=== PATIENT | male | born 1990 | race African-American/Black ===

== ENCOUNTER 2022-05-30 23:56 | Emergency (ER) | payer SELFPAY ==
[2022-05-31] MEDS ORDERED: ONDANSETRON 4 MG/2 ML VIAL ONE (00:41)
[2022-05-31] MEDS ORDERED: MORPHINE 4 MG/ML SYR ONE (00:41)
[2022-05-31] MEDS ORDERED: NA CHLORIDE 0.9% 2,000 ML ONE (00:41)
[2022-05-31] MEDS ORDERED: ACETAMINOPHEN 500 MG TAB ONE (00:41)
[2022-05-31 01:06] LABS: Absolute Lymphocytes (CBC) 0.3 K/uL (0.7-4.9); Lymphocytes % 4.7 % (15.3-44.8); MCV 84.9 fL (80-100); RBC Red Blood Cell Count 4.47 M/uL (4.33-5.43)
[2022-05-31 01:25] LABS: Albumin 4.4 g/dL (3.4-5.0); Bilirubin Total 0.3 mg/dL (0.2-1.0); Potassium 3.6 mmol/L (3.5-5.1); Protein, Total 7.6 g/dL (6.4-8.2)
[2022-05-31 03:01] LABS: Urine Blood Trace-intact (Negative); Urine Glucose Negative (Negative); Urine Protein Negative (Negative); Urine Specific Gravity 1.015 (1.005-1.030)
[2022-05-31 03:38] LABS: Urine Bacteria <20 /HPF (NONE SEEN); Urine Mucus 2+ /HPF (NONE SEEN); Urine RBC <5 /HPF (NONE SEEN)
--- NOTE | 2022-05-31 04:01 | ER ---
Nurse's Notes [facility] Name: Frederick Ghosh Age: 32 yrs Sex: Male : 1990 Arrival Date: 05/30/2022 Time: 23:59 Bed 3 Private MD: Diagnosis: Low back pain;Fever, unspecified;Coronavirus infection, unspecified;SARS-associated coronavirus as the cause of diseases classified elsewhere Presentation: 05/31 00:13 Chief complaint: Patient states: "My lower back is hurting really bad, it has been vc1 hurting all day.". Coronavirus screen: Vaccine status: Patient reports being unvaccinated. At this time, the client does not indicate any symptoms associated with coronavirus-19. Ebola Screen: No symptoms or risks identified at this time. Initial Sepsis Screen: Does the patient meet any 2 criteria? RR > 20 per min. HR > 90 bpm. Yes Does the patient have a suspected source of infection? No. Patient's initial sepsis screen is negative. Risk Assessment: Do you want to hurt yourself or someone else? Patient reports no desire to harm self or others. Onset of symptoms was May 27, 2022. 00:13 Method Of Arrival: Wheelchair vc1 00:13 Acuity: BO 3 vc1 Historical: - Allergies: 00:18 No Known Allergies; vc1 - Home Meds: 00:18 nitrofurantoin macrocrystal 25 mg Oral cap [Active]; vc1 - PMHx: 00:18 None; vc1 - PSHx: 00:18 None; vc1 - Immunization history:: Adult Immunizations Client reports having NOT received the Covid vaccine. - Social history:: Smoking status: Patient reports the use of cigarette tobacco products, smokes one pack cigarettes per day. - Family history:: not pertinent, pertinent for. Screenin:29 Abuse screen: Denies threats or abuse. Denies injuries from another. Nutritional lg3 screening: No deficits noted. On. Tuberculosis screening: No symptoms or risk factors identified. Fall Risk None identified. Assessment: 00:29 General: Appears in no apparent distress. uncomfortable, Behavior is calm, cooperative. lg3 Pain: Complains of pain in back Noted to be grimacing, guarding, moaning, resistant to movement. Neuro: No deficits noted. Level of Consciousness is awake, alert, obeys commands, Oriented to person, place, time, situation. Cardiovascular: No deficits noted. Denies chest pain, shortness of breath. Respiratory: No deficits noted. Airway is patent Trachea midline Respiratory effort is even, unlabored, Respiratory pattern is regular, symmetrical, Breath sounds are clear bilaterally. GI: No deficits noted. Abdomen is flat, non-distended. : Reports pain flank(s), in lower back urgency. EENT: No deficits noted. No signs and/or symptoms were reported regarding the EENT system. Derm: No deficits noted. No signs and/or symptoms reported regarding the dermatologic system. Skin is intact, is healthy with good turgor, Skin is dry, Skin temperature is warm. Musculoskeletal: No deficits noted. No signs and/or symptoms reported regarding the musculoskeletal system. Circulation, motion, and sensation intact. Range of motion: intact in all extremities. 00:45 General: pt states that he is currently on antibiotics for a UTI . lg3 01:42 Reassessment: Patient appears in no apparent distress at this time. No changes from lg3 previously documented assessment. Patient and/or family updated on plan of care and expected duration. Pain level reassessed. Patient is alert, oriented x 3, equal unlabored respirations, skin warm/dry/pink. 03:00 Reassessment: Patient appears in no apparent distress at this time. No changes from lg3 previously documented assessment. Patient and/or family updated on plan of care and expected duration. Pain level reassessed. Patient is alert, oriented x 3, equal unlabored respirations, skin warm/dry/pink. 04:15 Reassessment: Patient appears in no apparent distress at this time. No changes from lg3 previously documented assessment. Patient and/or family updated on plan of care and expected duration. Pain level reassessed. Patient is alert, oriented x 3, equal unlabored respirations, skin warm/dry/pink. Vital Signs: 00:13 BP 122 / 86; Pulse 106; Resp 24; Temp 100.5(O); Weight 73.94 kg; Height 6 ft. 3 in. vc1 (190.50 cm); Pain 10/10; 03:02 Temp 99.9(O); ll3 03:06 BP 115 / 72; Pulse 89; Resp 20; Pulse Ox 100% on R/A; ll3 04:15 Temp 99.2(O); lg3 00:13 Body Mass Index 20.37 (73.94 kg, 190.50 cm) vc1 ED Course: 05/30 23:59 Patient arrived in ED. am2 07/02 00:18 Triage completed. vc1 00:18 Arm band placed on left wrist. vc1 00:23 Nik Boswell MD is Attending Physician. tania 00:25 Rena Swanson, RACHAEL is Primary Nurse. lg3 00:29 Patient has correct armband on for positive identification. Bed in low position. Call lg3 light in reach. Side rails up X 1. Client placed on continuous cardiac and pulse oximetry monitoring. NIBP monitoring applied. monitor technician on. Door closed. Noise minimized. Warm blanket given. 00:43 Blood Culture Adult (2) Sent. lg3 00:44 CBC with Diff Sent. lg3 00:44 CMP Sent. lg3 00:44 Lipase Sent. lg3 00:50 Chest Single View XRAY - STROKE In Process Unspecified. EDMS 00:50 Inserted saline lock: 20 gauge in right antecubital area, using aseptic technique. lg3 00:57 Initial lab(s) drawn, by wv, sent to lab. First set of blood cultures drawn Second set mh5 of blood cultures drawn by me, COVID swab sent to lab. 00:59 COVID-19 SARS RT PCR (Document "Date of Onset" if Symptomatic) Sent. mh5 00:59 Lactate Sent. mh5 01:53 Notified ED physician of a critical lab result(s). COVID Positive. lp1 02:30 CT Abd/Pelvis - IV Contrast Only In Process Unspecified. EDMS 03:00 Urine Culture Sent. lg3 03:00 Urine Microscopic Only Sent. lg3 04:16 No provider procedures requiring assistance completed. IV discontinued, intact, lg3 bleeding controlled, No redness/swelling at site. Pressure dressing applied. Administered Medications: 00:43 Drug: NS 0.9% 1000 ml Route: IV; Rate: 1 bolus; Site: right antecubital; lg3 00:43 Drug: Tylenol 1000 mg Route: PO; lg3 00:43 Follow up: Response: No adverse reaction lg3 00:43 Drug: morphine 4 mg Route: IVP; Infused Over: 4 mins; Site: right antecubital; lg3 00:43 Follow up: Response: No adverse reaction lg3 00:44 Drug: NS 0.9% 1000 ml Route: IV; Rate: 1 bolus; Site: right antecubital; lg3 00:44 Drug: Zofran (Ondansetron) 4 mg Route: IVP; Site: right antecubital; lg3 00:44 Follow up: Response: No adverse reaction lg3 02:53 CANCELLED (Physician Discretion): NS 0.9% 1000 ml IV at 1 bolus Per protocol; 1000 mL lg3 bolus Medication: 04:16 VIS not applicable for this client. lg3 Outcome: 04:01 Discharge ordered by . tania 04:16 Discharged to home ambulatory. lg3 04:16 Condition: stable 04:16 Discharge instructions given to patient, Instructed on discharge instructions, medication usage, Demonstrated understanding of instructions, medications, Prescriptions given X 2. 04:16 Patient left the ED. lg3 Signatures: Dispatcher [employer] EDMS Nik Boswell MD MD cha Pena, Laura, RN RN [address] [facility] Swati Vang Rena Brennan RN RN lg3 José Miguel Chua, RACHAEL RN ll3 Mechelle Robin, RN RN vc1
--- NOTE | 2022-05-31 04:01 | EDPHYS ---
Physician Documentation [facility] Name: Frederick Ghosh Age: 32 yrs Sex: Male : 1990 Arrival Date: 05/30/2022 Time: 23:59 Bed 3 Private MD: ED Physician Nik Boswell HPI: 05/31 00:30 This 32 yrs old Black Male presents to ER via Wheelchair with complaints of Low Back tania Pain. 00:30 The patient presents with pain that is chronic, and an abrasion, and a bite, and a tania burn, and contusion, and a crush injury, and decreased range of motion, and deformity, and an injury, and a rash, and spasm, and swelling, and tenderness, and weakness. The symptoms are located in the low back, left low back, left mid back, right mid back and right low back. The pain does not radiate. The problem was sustained from unknown cause. Onset: The symptoms/episode began/occurred 2 day(s) ago. Modifying factors: The patient symptoms are alleviated by nothing, the patient symptoms are aggravated by any movement. Severity of symptoms: At their worst the symptoms were moderate, in the emergency department the symptoms are unchanged. The patient has not experienced similar symptoms in the past. Historical: - Allergies: 00:18 No Known Allergies; vc1 - Home Meds: 00:18 nitrofurantoin macrocrystal 25 mg Oral cap [Active]; vc1 - PMHx: 00:18 None; vc1 - PSHx: 00:18 None; vc1 - Immunization history:: Adult Immunizations Client reports having NOT received the Covid vaccine. - Social history:: Smoking status: Patient reports the use of cigarette tobacco products, smokes one pack cigarettes per day. - Family history:: not pertinent, pertinent for. ROS: 00:30 Constitutional: Negative for fever, chills, and weight loss, Eyes: Negative for injury, tania pain, redness, and discharge, ENT: Negative for injury, pain, and discharge, Neck: Negative for injury, pain, and swelling, Cardiovascular: Negative for chest pain, palpitations, and edema, Respiratory: Negative for shortness of breath, cough, wheezing, and pleuritic chest pain, Abdomen/GI: Negative for abdominal pain, nausea, vomiting, diarrhea, and constipation, : Negative for injury, bleeding, discharge, and swelling, MS/Extremity: Negative for injury and deformity, Skin: Negative for injury, rash, and discoloration, Neuro: Negative for headache, weakness, numbness, tingling, and seizure, Psych: Negative for depression, anxiety, suicide ideation, homicidal ideation, and hallucinations, Allergy/Immunology: Negative for hives, rash, and allergies, Endocrine: Negative for neck swelling, polydipsia, polyuria, polyphagia, and marked weight changes. 00:30 Back: Positive for pain at rest, flank pain, bilaterally, of the left low back, left mid back, right mid back and right low back. Exam: 00:34 Constitutional: This is a well developed, well nourished patient who is awake, alert, tania and in no acute distress. Head/Face: Normocephalic, atraumatic. Eyes: Pupils equal round and reactive to light, extra-ocular motions intact. Lids and lashes normal. Conjunctiva and sclera are non-icteric and not injected. Cornea within normal limits. Periorbital areas with no swelling, redness, or edema. ENT: Nares patent. No nasal discharge, no septal abnormalities noted. Tympanic membranes are normal and external auditory canals are clear. Oropharynx with no redness, swelling, or masses, exudates, or evidence of obstruction, uvula midline. Mucous membranes moist. Neck: Trachea midline, no thyromegaly or masses palpated, and no cervical lymphadenopathy. Supple, full range of motion without nuchal rigidity, or vertebral point tenderness. No Meningismus. Chest/axilla: Normal chest wall appearance and motion. Nontender with no deformity. No lesions are appreciated. Cardiovascular: Regular rate and rhythm with a normal S1 and S2. No gallops, murmurs, or rubs. Normal PMI, no JVD. No pulse deficits. Respiratory: Lungs have equal breath sounds bilaterally, clear to auscultation and percussion. No rales, rhonchi or wheezes noted. No increased work of breathing, no retractions or nasal flaring. Abdomen/GI: Soft, non-tender, with normal bowel sounds. No distension or tympany. No guarding or rebound. No evidence of tenderness throughout. Male : Normal genitalia with no discharge or lesions. Skin: Warm, dry with normal turgor. Normal color with no rashes, no lesions, and no evidence of cellulitis. MS/ Extremity: Pulses equal, no cyanosis. Neurovascular intact. Full, normal range of motion. Neuro: Awake and alert, GCS 15, oriented to person, place, time, and situation. Cranial nerves II-XII grossly intact. Motor strength 5/5 in all extremities. Sensory grossly intact. Cerebellar exam normal. Normal gait. Psych: Awake, alert, with orientation to person, place and time. Behavior, mood, and affect are within normal limits. 00:34 Back: pain, that is mild, that is moderate, of the lumbar area, left low back, left mid back, right mid back and right low back, ROM is painful, normal spinal alignment noted, CVA tenderness, is absent, muscle spasm, is not present. Vital Signs: 00:13 BP 122 / 86; Pulse 106; Resp 24; Temp 100.5(O); Weight 73.94 kg; Height 6 ft. 3 in. vc1 (190.50 cm); Pain 10/10; 03:02 Temp 99.9(O); ll3 03:06 BP 115 / 72; Pulse 89; Resp 20; Pulse Ox 100% on R/A; ll3 04:15 Temp 99.2(O); lg3 00:13 Body Mass Index 20.37 (73.94 kg, 190.50 cm) vc1 MDM: 00:23 Patient medically screened. tania 00:33 Differential diagnosis: strain, sciatica, UTI. Data reviewed: vital signs, nurses [facility] notes, lab test result(s), EKG, radiologic studies, CT scan, plain films. Data interpreted: manager monitoring: rate is 106 beats/min, rhythm is regular, Pulse oximetry: on room air is 99 %. Test interpretation: by ED physician or midlevel provider: plain radiologic studies. Counseling: I had a detailed discussion with the patient and/or guardian regarding: the historical points, exam findings, and any diagnostic results supporting the discharge/admit diagnosis, lab results, radiology results. 05/31 00:30 Order name: CBC with Diff; Complete Time: 01:20 [facility] 05/31 00:30 Order name: CMP; Complete Time: 02:37 [facility] 05/31 00:30 Order name: Lipase; Complete Time: 02:37 [facility] 05/31 00:30 Order name: Urine Microscopic Only; Complete Time: 04:01 [facility] 05/31 00:30 Order name: Lactate; Complete Time: 02:37 [facility] 05/31 00:30 Order name: Urine Culture [facility] 05/31 00:30 Order name: CT Abd/Pelvis - IV Contrast Only [facility] 05/31 00:30 Order name: Chest Single View XRAY - STROKE [facility] 05/31 00:30 Order name: Blood Culture Adult (2) [facility] 05/31 00:45 Order name: COVID-19 SARS RT PCR (Document "Date of Onset" if Symptomatic); Complete lg3 Time: 02:37 05/31 03:01 Order name: Urine Dipstick-Ancillary; Complete Time: 04:01 EDMS 05/31 00:30 Order name: IV Saline Lock; Complete Time: 00:44 [facility] 05/31 00:30 Order name: Labs collected and sent; Complete Time: 00:44 [facility] 05/31 00:30 Order name: Urine Dipstick-Ancillary (obtain specimen); Complete Time: 03:00 tania Administered Medications: 00:43 Drug: NS 0.9% 1000 ml Route: IV; Rate: 1 bolus; Site: right antecubital; lg3 00:43 Drug: Tylenol 1000 mg Route: PO; lg3 00:43 Follow up: Response: No adverse reaction lg3 00:43 Drug: morphine 4 mg Route: IVP; Infused Over: 4 mins; Site: right antecubital; lg3 00:43 Follow up: Response: No adverse reaction lg3 00:44 Drug: NS 0.9% 1000 ml Route: IV; Rate: 1 bolus; Site: right antecubital; lg3 00:44 Drug: Zofran (Ondansetron) 4 mg Route: IVP; Site: right antecubital; lg3 00:44 Follow up: Response: No adverse reaction lg3 02:53 CANCELLED (Physician Discretion): NS 0.9% 1000 ml IV at 1 bolus Per protocol; 1000 mL lg3 bolus Disposition Summary: 05/31/22 04:01 Discharge Ordered Location: Home tania Problem: new tania Symptoms: have improved tania Condition: Stable tania Diagnosis - Low back pain tania - Fever, unspecified tania - Coronavirus infection, unspecified tania - SARS-associated coronavirus as the cause of diseases classified elsewhere tania Followup: tania - With: Private Physician - When: 2 - 3 days - Reason: Recheck today's complaints, Continuance of care, Re-evaluation by your physician Discharge Instructions: - Discharge Summary Sheet [facility] - Acute Back Pain, Adult [facility] - Musculoskeletal Pain [facility] - Viral Respiratory Infection, [id number] [facility] - COVID-19 [facility] - COVID-19 Frequently Asked Questions [facility] - Things to Know about the COVID-19 Pandemic - [facility] - 10 Things You Can Do to Manage Your COVID-19 Symptoms at Home - [facility] - Viral Illness, Adult [facility] - COVID-19: Quarantine vs. Isolation - [facility] - Prevent the Spread of COVID-19 if You Are Sick - [facility] Forms: - Medication Reconciliation Form [facility] - Thank You Letter [facility] - Antibiotic Education [facility] - Prescription Opioid Use [facility] Prescriptions: - Ibuprofen 600 mg Oral Tablet - take 1 tablet by ORAL route every 6 hours As needed take with food; 30 tablet; [facility] Refills: 0, Product Selection Permitted - Zithromax Z-Melo 250 mg Oral Tablet - take 1 tablet by ORAL route as directed for 5 days Day 1 - take two (2) tablets [facility] one time. Day 2, 3, 4 , 5 take one (1) tablet once daily.; 6 tablet; Refills: 0, Product Selection Permitted Signatures: Dispatcher [employer] EDNik Aponte MD MD cha Gibson, Lacie RN RN lg3 Mechelle Robin RN RN vc1 Corrections: (The following items were deleted from the chart) 02:53 02:38 NS 0.9% 1000 ml IV at 1 bolus Per protocol; 1000 mL bolus ordered. [facility] lg3
[2022-05-31 04:23] VITALS: BP 115/72; O2SAT 100
[2022-05-31 04:24] VITALS: TEMP 99.2
--- NOTE | 2022-05-31 20:09 | RAD REPORT ---
EXAM DESCRIPTION: CT - Abdomen Pelvis W Contrast - 05/31/2022 7:16 am CLINICAL HISTORY: FLANK COMPARISON: None. TECHNIQUE: CT ABDOMEN PELVIS WITH IV CONTRAST on 05/31/2022 12:30 AM CDT This exam was performed according to our departmental dose-optimization program, which includes autom ated exposure control, adjustment of the mA and/or kV according to patient size and/or use of iterati ve reconstruction technique. FINDINGS: Lower lungs are clear. Abdomen: The liver is normal in appearance. There is no biliary dilatation. Gallbladder is normal in appearance. The pancreas and spleen are normal in appearance. The adrenal glands and kidneys are unre markable. Abdominal aorta is normal in course and caliber without aneurysm. There is no free air. There is no r etroperitoneal adenopathy. Pelvis: There is no bowel obstruction. Urinary bladder is unremarkable. There is no free fluid. Appen pauly is normal. Skeleton: There are no acute osseous findings. No suspicious bony lesions. IMPRESSION: No acute process. Electronically signed by: Jorge Lassiter MD 05/31/2022 3:48 AM CDT Due to temporary technical issues with the PACS/Fluency reporting system, reports are being signed by the in house radiologists without review as a courtesy to insure prompt reporting. The interpreting radiologist is fully responsible for the content of the report.
--- NOTE | 2022-05-31 21:09 | RAD REPORT ---
EXAM DESCRIPTION: RAD - Chest Single View - 05/31/2022 12:49 am CLINICAL HISTORY: The patient is 32 years old and is Male; COUGH TECHNIQUE: Frontal view of the chest. COMPARISON: No relevant prior studies available. FINDINGS: Lungs: Unremarkable. No consolidation. Pleural space: Unremarkable. No pneumothorax. Heart: Unremarkable. Mediastinum: Unremarkable. Bones/joints: Unremarkable. IMPRESSION: No acute findings in the chest. Electronically signed by: Bismark Urias MD 05/31/2022 1:26 AM CDT Due to temporary technical issues with the PACS/Fluency reporting system, reports are being signed by the in house radiologists without review as a courtesy to insure prompt reporting. The interpreting radiologist is fully responsible for the content of the report.
== END 2022-05-31 04:16 | disposition home or self-care (01) ==
LOC: ER 23:56
DX: U07.1 COVID-19 (principal); R50.9 Fever, unspecified; F17.210 Nicotine dependence, cigarettes, uncomplicated
CPT/HCPCS: 36415; 71045; 74177; 80053; 81003; 81015; 83605; 83690; 85025; 87040; 87086; 87088; 96374; 96375; 99284; J2405; J7030; Q9967; U0003

== ENCOUNTER 2024-01-12 16:19 | Inpatient (IN) | payer SELFPAY ==
[2024-01-12] MEDS ORDERED: ASPIRIN 81 MG CHEWABLE TABLET ONE (16:26)
[2024-01-12 16:40] LABS: Absolute Lymphocytes (CBC) 1.8 K/uL (0.7-4.9); Hematocrit 44.3 % (39.6-49.0); Lymphocytes % 52.2 % (15.3-44.8); MCV 89.3 fL (80-100); MPV 7.7 fL (7.6-11.3); Platelets 260 thou/uL (152-406); RBC Red Blood Cell Count 4.96 M/uL (4.33-5.43)
[2024-01-12] MEDS ORDERED: METOPROLOL TARTRATE 5 MG/5 ML INJ IV ONE ×2 (16:40→16:45)
[2024-01-12] MEDS ORDERED: NA CHLORIDE 0.9% 1,000 ML ONE (16:46)
[2024-01-12 16:57] LABS: Albumin 3.6 g/dL (3.4-5.0); Bilirubin Direct 0.2 mg/dL (0-0.2); Bilirubin Indirect, Calculated 0.2 mg/dL (0.2-0.8); Bilirubin Total 0.4 mg/dL (0.2-1.0); Magnesium 2.2 mg/dL (1.6-2.4); Potassium 3.5 mEq/L (3.5-5.1); Protein, Total 7.9 g/dL (6.4-8.2); Troponin High Sensitivity 7.3 pg/mL (<58.9)
[2024-01-12 17:32] LABS: Barbiturates NEGATIVE (NEGATIVE); Benzodiazepines NEGATIVE (NEGATIVE); Cocaine NEGATIVE (NEGATIVE); METHAMPHETAM NEGATIVE (NEGATIVE); Methadone NEGATIVE (NEGATIVE); Opiates NEGATIVE (NEGATIVE); Phencyclidine NEGATIVE (NEGATIVE); THC Cannibis NEGATIVE (NEGATIVE)
--- NOTE | 2024-01-12 17:38 | EDPHYS ---
Physician Documentation [facility] Name: Frederick Ghosh Age: 33 yrs Sex: Male : 1990 Arrival Date: 01/12/2024 Time: 16:19 Bed 7 Private MD: ED Physician Antwon Friend HPI: 01/12 17:36 This 33 yrs old Black Male presents to ER via Ambulatory with complaints of High Blood kb Pressure, Palpitations. 17:36 Patient is a 33-year-old male who presents for palpitations and chest pressure that kb started earlier today. States he woke up and felt his heart racing for no reason. Reports history of hypertension but denies any other medical history. Patient is in [facility] for rehab due to previous EtOH abuse. Historical: - Allergies: 16:24 No Known Allergies; ph - Home Meds: 16:37 losartan oral [Active]; Seroquel Oral [Active]; mb9 - PMHx: 16:24 Depressive disorder; Hypertensive disorder; ph - PSHx: 16:37 None; mb9 - Immunization history:: Adult Immunizations up to date. - Social history:: Smoking status: Patient denies any tobacco usage or history of. ROS: 17:33 Constitutional: Negative for fever, chills, and weight loss, kb 17:33 Cardiovascular: Positive for chest pain, palpitations, 17:33 All other systems are negative, Exam: 17:33 Constitutional: This is a well developed, well nourished patient who is awake, alert, kb and in no acute distress. Head/Face: Normocephalic, atraumatic. ENT: Moist Mucous membranes Respiratory: Respirations even and unlabored. No increased work of breathing. Talking in full sentences Abdomen/GI: Soft, non-tender. No distention Skin: Warm, dry with normal turgor. Normal color. MS/ Extremity: Pulses equal, no cyanosis. Neurovascular intact. Full, normal range of motion. Neuro: Awake and alert, GCS 15, oriented to person, place, time, and situation. Moves all extremities. Normal gait. 17:33 Cardiovascular: Rate: tachycardic, Rhythm: irregularly irregular, Pulses: no pulse deficits are appreciated, Vital Signs: 16:31 Pulse 62; Resp 18; Temp 98.7; Pulse Ox 97% on R/A; Weight 72.57 kg; Height 6 ft. 3 in. ;ph 16:34 BP 134 / 102; Pulse 125; Resp 18; Pulse Ox 98% on R/A; mb9 16:43 BP 155 / 130; Pulse 128; Resp 18; Pulse Ox 100% on R/A; mb9 16:49 BP 132 / 116; Pulse 108; Resp 16; Pulse Ox 100% ; mb9 17:00 BP 152 / 119; Pulse 100; Resp 18; Pulse Ox 100% on R/A; mb9 17:19 BP 148 / 115; Pulse 92; Resp 16; Pulse Ox 99% on R/A; mb9 18:04 BP 147 / 110; Pulse 84; Resp 16; Pulse Ox 97% on R/A; mb9 18:33 BP 140 / 111; Pulse 88; Resp 18; Pulse Ox 97% on R/A; mb9 19:00 BP 150 / 103; Pulse 90; Resp 18; Pulse Ox 100% ; vc1 20:00 BP 144 / 109; Pulse 83; Resp 18; Pulse Ox 100% ; vc1 16:31 Body Mass Index 20.00 (72.57 kg, 190.5 cm) ph MDM: 16:21 Patient medically screened. kb 17:36 Differential diagnosis: arrythmia, dehydration, stress disorder. Data reviewed: vital kb signs, nurses notes. Consideration of Admission/Observation Patient was admitted/placed on observation. Escalation of care including admission/observation considered. Counseling: I had a detailed discussion with the patient and/or guardian regarding the historical points, exam findings, and any diagnostic results supporting the discharge/admit diagnosis, lab results, radiology results, the need for further work-up and treatment in the hospital. 01/12 16:24 Order name: Basic Metabolic Panel; Complete Time: 17:01 kb 01/12 16:24 Order name: CBC with Diff; Complete Time: 16:48 kb 01/12 16:24 Order name: D-Dimer; Complete Time: 16:53 kb 01/12 16:24 Order name: LFT's; Complete Time: 17:01 kb 01/12 16:24 Order name: Magnesium; Complete Time: 17:01 kb 01/12 16:24 Order name: Troponin HS; Complete Time: 17:01 kb 01/12 16:49 Order name: UDS; Complete Time: 17:32 kb 01/12 17:25 Order name: TSH; Complete Time: 17:52 em1 01/12 21:08 Order name: Urinalysis w/ reflexes EDMS 01/12 16:24 Order name: XRAY Chest (1 view); Complete Time: 18:54 kb 01/12 16:24 Order name: EKG; Complete Time: 16:25 kb 01/12 16:24 Order name: Cardiac monitoring; Complete Time: 16:25 kb 01/12 16:24 Order name: EKG - Nurse/Tech; Complete Time: 16:32 kb 01/12 16:24 Order name: IV Saline Lock; Complete Time: 16:32 kb 01/12 16:24 Order name: Labs collected and sent; Complete Time: 16:32 kb 01/12 16:24 Order name: O2 Per Protocol; Complete Time: 16:25 kb 01/12 16:24 Order name: O2 Sat Monitoring; Complete Time: 16:25 kb Administered Medications: 16:32 Drug: Aspirin PO Chewable Tablet 324 mg PO once; 81 mg tablets x 4 Route: PO; mb9 17:58 Follow up: Response: No adverse reaction mb9 16:43 Drug: Metoprolol IVP 5 mg IVP once; Hold for SBP <100 or HR <60. Route: IVP; Site[place] [facility] antecubital; 17:42 Follow up: Response: No adverse reaction mb9 16:43 Not Given (Duplicate Order): metoprolol5 mg IVP every 5 minutes; Hold for SBP < 100 or kb HR < 60. x3 16:47 Drug: NS 0.9% IV 1000 ml IV at 1000 ml once Route: IV; Rate: 1000 ml; Site: [facility] [place] ante[facility]ubital; 17:42 Follow up: Response: No adverse reaction; IV Status: Completed infusion mb9 16:49 Drug: Metoprolol IVP 5 mg IVP every 5 minutes; Hold for SBP < 100 or HR < 60. x2 Route: mb9 IVP; Site: right antecubital; 17:00 Drug: Metoprolol IVP 5 mg IVP every 5 minutes; Hold for SBP < 100 or HR < 60. x2 Route: mb9 IVP; Site: right antecubital; 17:41 Follow up: Response: No adverse reaction mb9 Disposition: 01/13 10:22 Co-signature as Attending Physician, Antwon Friend MD I reviewed the patient's care rt provided by the Advanced Practice Provider and agree with the diagnosis and treatment plan. Disposition Summary: 01/12/24 17:37 Hospitalization Ordered Notes: Hospitalization Status: Observation kb Provider: Neeraj Kearney Location: Telemetry/MedSurg (observation) kb Condition: Stable kb Problem: new kb Symptoms: are unchanged kb Bed/Room Type: Standard Room Assignment: 214(01/12/24 21:18) jb4 Diagnosis - Unspecified atrial fibrillation - new onset kb Forms: - Medication Reconciliation Form kb - SBAR form kb - Leadership Thank You Letter kb Signatures: Dispatcher [employer] EDClaribel Varela FNP-C FNP-Theresa Ortiz RN RN Aayush Cornejo RN RN jb4 Barbie Pillai RN RN Antwon Clifton MD MD rt Corrections: (The following items were deleted from the chart) 01/12 16:25 16:24 PMHx: depressiondepression; ph ph 16:38 16:37 Home Meds: None; marjorie mb9 21:18 17:37 kb jb4
--- NOTE | 2024-01-12 17:38 | ER ---
Nurse's Notes [facility] Name: Frederick Ghosh Age: 33 yrs Sex: Male : 1990 Arrival Date: 01/12/2024 Time: 16:19 Bed 7 Private MD: Diagnosis: Unspecified atrial fibrillation-new onset Presentation: 01/12 16:22 Chief complaint: Patient states: Feels like heart is beating fast, palpitations, high ph BP, SOB and chest pressure, started today. Coronavirus screen: Vaccine status: Patient reports being unvaccinated. Ebola Screen: No symptoms or risks identified at this time. Initial Sepsis Screen: Does the patient meet any 2 criteria? No. Patient's initial sepsis screen is negative. Does the patient have a suspected source of infection? No. Patient's initial sepsis screen is negative. Risk Assessment: Do you want to hurt yourself or someone else? Patient reports no desire to harm self or others. 16:22 Method Of Arrival: Ambulatory ph 16:31 Acuity: BO 2 ph 16:37 Onset of symptoms was January 12, 2024. mb9 Historical: - Allergies: 16:24 No Known Allergies; ph - Home Meds: 16:37 losartan oral [Active]; Seroquel Oral [Active]; mb9 - PMHx: 16:24 Depressive disorder; Hypertensive disorder; ph - PSHx: 16:37 None; mb9 - Immunization history:: Adult Immunizations up to date. - Social history:: Smoking status: Patient denies any tobacco usage or history of. Screenin:36 [facility] [place] ED Fall Risk Assessment (Adult) History of falling in the last 3 months, mb9 including since admission No falls in past 3 months (0 pts) Confusion or Disorientation No (0 pts) Intoxicated or Sedated No (0 pts) Impaired Gait No (0 pts) Mobility Assist Device Used No (0 pt) Altered Elimination No (0 pt) Score/Fall Risk Level 0 - 2 = Low Risk Oriented to surroundings, Maintained a safe environment, Educated pt \T\ family on fall prevention, incl call for assistance when getting out of bed. Abuse screen: Denies threats or abuse. Nutritional screening: No deficits noted. Tuberculosis screening: No symptoms or risk factors identified. Assessment: 16:32 General: Appears in no apparent distress. Behavior is calm, cooperative. Pain: Denies mb9 pain. Neuro: [place] Agitation-Sedation Scale (RASS): 0 - Alert and Calm Level of Consciousness is awake, alert, obeys commands, Oriented to person, place, time, situation, Appropriate for age. Cardiovascular: Heart tones S1 S2 present Patient's skin is warm and dry. Rhythm is atrial fibrillation with rapid ventricular response. Cardiovascular: Reports palpitations. Respiratory: Reports shortness of breath Airway is patent Respiratory effort is even, unlabored, Respiratory pattern is regular, symmetrical, Breath sounds are clear bilaterally. GI: Abdomen is flat, non-distended, Bowel sounds present X 4 quads. Abd is soft and non tender X 4 quads. : No signs and/or symptoms were reported regarding the genitourinary system. EENT: No signs and/or symptoms were reported regarding the EENT system. Derm: Skin is pink, warm \T\ dry. Musculoskeletal: Range of motion: intact in all extremities. 17:58 Reassessment: No changes from previously documented assessment. Patient and/or family mb9 updated on plan of care and expected duration. Pain level reassessed. Patient is alert, oriented x 3, equal unlabored respirations, skin warm/dry/pink. 19:11 Reassessment: No changes from previously documented assessment. Patient and/or family vc1 updated on plan of care and expected duration. Pain level reassessed. Patient is alert, oriented x 3, equal unlabored respirations, skin warm/dry/pink. 21:30 Reassessment: Attempted to call report, went to voicemail. vc1 Vital Signs: 16:31 Pulse 62; Resp 18; Temp 98.7; Pulse Ox 97% on R/A; Weight 72.57 kg; Height 6 ft. 3 in. ;ph 16:34 BP 134 / 102; Pulse 125; Resp 18; Pulse Ox 98% on R/A; mb9 16:43 BP 155 / 130; Pulse 128; Resp 18; Pulse Ox 100% on R/A; mb9 16:49 BP 132 / 116; Pulse 108; Resp 16; Pulse Ox 100% ; mb9 17:00 BP 152 / 119; Pulse 100; Resp 18; Pulse Ox 100% on R/A; mb9 17:19 BP 148 / 115; Pulse 92; Resp 16; Pulse Ox 99% on R/A; mb9 18:04 BP 147 / 110; Pulse 84; Resp 16; Pulse Ox 97% on R/A; mb9 18:33 BP 140 / 111; Pulse 88; Resp 18; Pulse Ox 97% on R/A; mb9 19:00 BP 150 / 103; Pulse 90; Resp 18; Pulse Ox 100% ; vc1 20:00 BP 144 / 109; Pulse 83; Resp 18; Pulse Ox 100% ; vc1 16:31 Body Mass Index 20.00 (72.57 kg, 190.5 cm) ph ED Course: 16:20 Patient arrived in ED. rg4 16:21 Eusebio George DO is Attending Physician. ms3 16:21 [facility] Guz[facility]C [facility]. kb 16:21 Attending Physician role handed off by Eusebio George DO kb 16:21 Antwon Friend MD is Attending Physician. kb 16:25 Barbie Pillai RN is Primary Nurse. mb9 16:25 Arm band placed on Patient placed in an exam room. ph 16:31 Triage completed. ph 16:32 Basic Metabolic Panel Sent. mb9 16:32 CBC with Diff Sent. mb9 16:32 D-Dimer Sent. mb9 16:32 LFT's Sent. mb9 16:32 Magnesium Sent. mb9 16:32 Troponin HS Sent. mb9 16:32 EKG done, by ED staff, reviewed by Claribel CHU. Inserted saline lock: 18 mb9 gauge in right antecubital area, using aseptic technique. Blood collected. 16:37 Placed in gown. Bed in low position. Call light in reach. Side rails up X 1. Client mb9 placed on continuous cardiac and pulse oximetry monitoring. NIBP monitoring applied. monitoring engineer on. Door closed. Noise minimized. Warm blanket given. 16:37 No provider procedures requiring assistance completed. mb9 17:32 XRAY Chest (1 view) In Process Unspecified. EDMS 17:37 Neeraj Kearney MD is Hospitalizing Provider. kb 17:44 Patient admitted, IV remains in place. mb9 19:03 Report given to RACHAEL Min. mb9 21:55 Provided Education on: A fib. vc1 Administered Medications: 16:32 Drug: Aspirin PO Chewable Tablet 324 mg PO once; 81 mg tablets x 4 Route: PO; mb9 17:58 Follow up: Response: No adverse reaction mb9 16:43 Drug: Metoprolol IVP 5 mg IVP once; Hold for SBP <100 or HR <60. Route: IVP; Site: mb9 right antecubital; 17:42 Follow up: Response: No adverse reaction mb9 16:43 Not Given (Duplicate Order): metoprolol5 mg IVP every 5 minutes; Hold for SBP < 100 or kb HR < 60. x3 16:47 Drug: NS 0.9% IV 1000 ml IV at 1000 ml once Route: IV; Rate: 1000 ml; Site: right mb9 antecubital; 17:42 Follow up: Response: No adverse reaction; IV Status: Completed infusion mb9 16:49 Drug: Metoprolol IVP 5 mg IVP every 5 minutes; Hold for SBP < 100 or HR < 60. x2 Route: mb9 IVP; Site: right antecubital; 17:00 Drug: Metoprolol IVP 5 mg IVP every 5 minutes; Hold for SBP < 100 or HR < 60. x2 Route: mb9 IVP; Site: right antecubital; 17:41 Follow up: Response: No adverse reaction mb9 Medication: 16:37 VIS not applicable for this client. mb9 Outcome: 17:37 Decision to Hospitalize by Provider. kb 21:55 Admitted to Med/surg accompanied by nurse, via wheelchair, room 214, Report called to renetta Recinos RN 21:55 Condition: good 21:55 Instructed on the need for admit, 21:56 Patient left the ED. [facility] Signatures: Dispatcher [employer] EDClaribel Varela, KIMBERLEY CHAVARRIA-Theresa Ortiz, RN RN ph Rylee Li rg4 Eusebio George, DO ms3 Mechelle Robin RN RN vc1 Barbie Pillai RN RN mb9 Corrections: (The following items were deleted from the chart) 16:25 16:24 PMHx: depressiondepression; ph ph 16:38 16:37 Home Meds: None; mb9 mb9 16:47 16:43 BP 155 / 130; Pulse 128bpm; Resp 10bpm; Pulse Ox 100% RA; mb9 mb9
--- NOTE | 2024-01-12 18:52 | RAD REPORT ---
[facility]30 [facility] CLINICAL HISTORY: Chest pain;Palpitations COMPARISON: Chest Single View dated 05/31/2022 TECHNIQUE: Portable AP view of the chest. FINDINGS: The lungs are clear. No pneumothorax or effusion. The cardiomediastinal contours are unre markable. IMPRESSION: No acute cardiopulmonary process.
[2024-01-12 22:17] VITALS: O2SAT 100; BMI 19.0
[2024-01-13] MEDS: QUETIAPINE 100MG TAB PO SCH (00:18)
[2024-01-13] MEDS: NICOTINE 14 MG/PAT TD SCH (00:18)
--- NOTE | 2024-01-13 05:09 | P.HP ---
Certification for Inpatient Patient admitted to: Observation With expected LOS: <2 Midnights Practitioner: I am a practitioner with admitting privileges, knowledge of patient current condition, hospital course, and medical plan of care. Services: Services provided to patient in accordance with Admission requirements found in Title 42 Section 412.3 of the Code of Federal Regulations Patient History Date of Service: 01/13/24 Reason for admission: Abnormal heartbeat. History of Present Illness: 33-year-old male patient with medical history significant for hypertension and mood disorder but coming to the emergency room with complaint of abnormality. He has been having palpitations and some chest discomfort so decided come into the ED. In the ED was found to have atrial fibrillation with rapid ventricular response heart rate is in 130s. He was started on rate control question IV metoprolol and was admitted for inpatient care. Initial lab done in the emergency room was nonconcerning as electrolytes are within acceptable limit. He denied overt episode of chest pain, nausea, vomiting, fever, chills, rigor, nausea, vomiting. Allergies No Known Allergies Allergy (Unverified 01/12/24 19:37) Home Medications: Folic Acid 1 mg PO DAILY 01/12/24 Losartan Potassium 50 mg PO BID 01/12/24 Quetiapine Fumarate [Seroquel] 300 mg PO BEDTIME 01/12/24 Vitamin B Complex [Vitamin B Complex*] 100 mcg PO DAILY 01/12/24 - Past Medical/Surgical History Has patient received pneumonia vaccine in the past: No - Social History Smoking Status: Current some day smoker Alcohol use: Yes Caffeine use: Yes Review of Systems General: Malaise Eyes: Unremarkable ENT: Unremarkable Respiratory: Unremarkable Cardiovascular: Palpitations, As per HPI Gastrointestinal: Unremarkable Genitourinary: Unremarkable Musculoskeletal: Unremarkable Integumentary: Unremarkable Neurological: Unremarkable Lymphatics: Unremarkable Physical Examination - Vital Signs Temperature: 98.3 F Blood Pressure: 151/97 Pulse: 96 Respirations: 15 Pulse Ox (%): 99 - Physical Exam General: Alert, Oriented x3 HEENT: Atraumatic Neck: Supple Respiratory: Normal air movement Cardiovascular: Irregular heart rate/rhythm Gastrointestinal: Soft and benign Musculoskeletal: No swelling Neurological: Normal speech, Normal strength at 5/5 x4 extr - Studies Laboratory Data (last 24 hrs) 01/12/24 01/12/24 16:30 16:30 WBC 3.50 L Hgb 15.2 Hct 44.3 Plt Count 260 Sodium 139 Potassium 3.5 BUN 5 L Creatinine 1.04 Glucose 88 Magnesium 2.2 Total Bilirubin 0.4 AST 21 ALT 24 Alkaline Phosphatase 87 Assessment and Plan - Plan Atrial fibrillation with rapid ventricular response: Rapid heartbeat of 130s noted but this has slowed down with IV metoprolol. Continue oral metoprolol dose, put on telemetry and obtain echocardiogram for assessment. Will consult cardiology for management recommendation. Continue aspirin therapy. History of hypertension: Monitor vital signs per unit protocol and continue antihypertensive medications. Prophylaxis: Lovenox for DVT prophylax. CODE STATUS: Full code. Disposition: We will treat his A-fib with RVR and he will be discharged once cleared by cardiology service. - Advance Directives Does patient have a Living Will: No Does patient have a Durable POA for Healthcare: No
[2024-01-13] MEDS: METOPROLOL TAR 25 MG TAB PO SCH (06:01)
[2024-01-13] MEDS: INFLUENZA VACCINE (for 6+ mo) 0.5 ML DOSE IMVAC ONE (07:57)
[2024-01-13 08:09] LABS: Magnesium 2.3 mg/dL (1.6-2.4); Potassium 3.8 mEq/L (3.5-5.1); Troponin High Sensitivity 5.9 pg/mL (<58.9)
[2024-01-13] MEDS: POTASSIUM CL SA 10 MEQ TAB PO ONE (09:23)
--- NOTE | 2024-01-13 10:21 | P.PN ---
Subjective Date of Service: 01/13/24 Chief Complaint: Abnormal heartbeat. Pt is resting comfortably in bed. Pt denies any chest pain or SOB. HR is controlled with metoprolol. He is under a lot of stress from family issues. No other complaints. Review of Systems Unremarkable General: Unremarkable Eyes: Unremarkable ENT: Unremarkable Respiratory: Unremarkable Cardiovascular: Unremarkable Gastrointestinal: Unremarkable Genitourinary: Unremarkable Musculoskeletal: Unremarkable Integumentary: Unremarkable Neurological: Unremarkable Lymphatics: Unremarkable Physical Examination - Vital Signs Temperature: 98.4 F Blood Pressure: 138/106 Pulse: 100 Respirations: 18 Pulse Ox (%): 99 - Physical Exam General: Alert, In no apparent distress, Oriented x3 HEENT: Atraumatic, Normocephalic Neck: Supple, 2+ carotid pulse no bruit Respiratory: Clear to auscultation bilaterally, Normal air movement Cardiovascular: No edema, Normal pulses, Regular rate/rhythm, Normal S1 S2 Capillary refill: <2 Seconds Gastrointestinal: Normal bowel sounds, Soft and benign, Non-distended Musculoskeletal: No clubbing, No swelling Integumentary: No rashes, No breakdown Neurological: Normal gait, Normal speech, Normal strength at 5/5 x4 extr Lymphatics: No axilla or inguinal lymphadenopathy - Studies Laboratory Data (last 24 hrs) 01/12/24 01/12/24 16:30 16:30 WBC 3.50 L Hgb 15.2 Hct 44.3 Plt Count 260 Sodium 139 Potassium 3.5 BUN 5 L Creatinine 1.04 Glucose 88 Magnesium 2.2 Total Bilirubin 0.4 AST 21 ALT 24 Alkaline Phosphatase 87 Assessment And Plan - Plan Atrial fibrillation with RVR: Will continue metoprolol 25mg po BID, telemetry and aspirin. Will f/u echocardiogram. Consulted Cardiology. History of hypertension: continue antihypertensive medications. DVT ppx: Lovenox Code: Full code. Disposition: Pending hospital course.
[2024-01-13] MEDS ORDERED: ACETAMINOPHEN 325 MG TABLET PO PRN (16:26)
--- NOTE | 2024-01-13 17:07 | P.CNS ---
Date of Consult: 01/13/24 Chief Complaint: Abnormal heartbeat. History of Present Illness: patient with PMH of HTN Mood disorder who presented with fast heart rate, found to be in atrial fibrillation. Allergies No Known Allergies Allergy (Unverified 01/12/24 19:37) Home Medications: Folic Acid 1 mg PO DAILY 01/12/24 Losartan Potassium 50 mg PO BID 01/12/24 Quetiapine Fumarate [Seroquel] 300 mg PO BEDTIME 01/12/24 Vitamin B Complex [Vitamin B Complex*] 100 mcg PO DAILY 01/12/24 - Social History Smoking Status: Current every day smoker Alcohol use: Yes Caffeine use: Yes Review of Systems 10-point ROS is otherwise unremarkable Physical Examination Temp Pulse Resp BP Pulse Ox 98.5 F 82 18 144/83 H 100 01/13/24 16:00 01/13/24 16:00 01/13/24 16:00 01/13/24 16:00 01/13/24 16:00 General: Alert, Oriented x3 HEENT: Atraumatic Neck: Supple Respiratory: Clear to auscultation bilaterally Cardiovascular: Other (irregular rate and rhythm) Gastrointestinal: Normal bowel sounds Musculoskeletal: No clubbing, No swelling - Problems (1) Atrial fibrillation Current Visit: Yes Status: Acute Plan: Increase lopressor to 50 mg po BID ASA 81 mg daily Echo is normal Follow up in clinic with cardiology. Qualifiers: Atrial fibrillation type: paroxysmal Qualified Code(s): I48.0 - Paroxysmal atrial fibrillation
[2024-01-13] MEDS: METOPROLOL TAR 50 MG TAB PO SCH (17:15)
[2024-01-14 03:42] LABS: Absolute Lymphocytes (CBC) 2.5 K/uL (0.7-4.9); Hematocrit 40.2 % (39.6-49.0); Lymphocytes % 59.4 % (15.3-44.8); MCV 88.6 fL (80-100); MPV 8.6 fL (7.6-11.3); Platelets 236 thou/uL (152-406); RBC Red Blood Cell Count 4.54 M/uL (4.33-5.43)
[2024-01-14 03:53] LABS: Potassium 3.6 mEq/L (3.5-5.1)
[2024-01-14 05:25] LABS: Blood Morphology Comment NOT SEEN (NOT SEEN); Platelet Estimate ADEQ
--- NOTE | 2024-01-14 06:57 | ECHO ---
HEIGHT: 6 ft 4 in WEIGHT: 156 lb 1.6 oz DATE OF STUDY: 01/13/[address]: Neeraj Kearney MD 2-DIMENSIONAL: YES M.MODE: YES DOPPLER: YES COLOR FLOW: YES TDS: NO PORTABLE: YES DEFINITY: NO BUBBLE STUDY: NO DIAGNOSIS: ATRIAL FIBRILLATION WITH RAPID VENTRICULAR RESPONSE CARDIAC HISTORY: CATHERIZATION: NO SURGERY: NO PROSTHETIC VALVE: NO PACEMAKER: NO MEASUREMENTS (cm) DIASTOLIC (NORMALS) SYSTOLIC (NORMALS) IVSd 0.9 (0.6-1.2) LA Diam 2.3 (1.9-4.0) LVEF 54% LVIDd 3.9 (3.5-5.7) LVIDs 2.9 (2.0-3.5) %FS 27% LVPWd 1.0 (0.6-1.2) Ao Diam 2.6 (2.0-3.7) 2 DIMENSIONAL ASSESSMENT: RIGHT ATRIUM: NORMAL LEFT ATRIUM: NORMAL RIGHT VENTRICLE: NORMAL LEFT VENTRICLE: MILD CONCENTRIC HYPERTROPHY TRICUSPID VALVE: NORMAL MITRAL VALVE: NORMAL PULMONIC VALVE: NORMAL AORTIC VALVE: NORMAL PERICARDIAL EFFUSION: NONE AORTIC ROOT: NORMAL LEFT VENTRICULAR WALL MOTION: NORMAL DOPPLER/COLOR FLOW: NORMAL COMMENTS: 1. MILD CONCENTRIC LEFT VENTRICULAR HYPERTROPHY. NORMAL WALL MOTION. NORMAL EJECTION FRACTION 55-60%. 2. NORMAL DIASTOLIC FUNCTION. TECHNOLOGIST: Ezequiel CARR
[2024-01-14] MEDS: POTASSIUM CL SA 10 MEQ TAB PO ONE (08:33)
--- NOTE | 2024-01-14 12:51 | P.DS ---
Admission Date: 01/12/24 Discharge Date: 01/14/24 Disposition: ROUTINE DISCHARGE Discharge Condition: GOOD Reason for Admission: Abnormal heartbeat. Brief History of Present Illness: 33-year-old male patient with medical history significant for hypertension and mood disorder but coming to the emergency room with complaint of abnormality. He has been having palpitations and some chest discomfort so decided come into the ED. In the ED was found to have atrial fibrillation with rapid ventricular response heart rate is in 130s. He was started on rate control question IV metoprolol and was admitted for inpatient care. Initial lab done in the emergency room was nonconcerning as electrolytes are within acceptable limit. He denied overt episode of chest pain, nausea, vomiting, fever, chills, rigor, nausea, vomiting. Hospital Course: Pt is a 33 yo male with past medical history of hypertension and mood disorder who presented with palpitation du eto A. fib with RVR. We admitted pt and gave metoprolol, aspirin and continued telemetry. cardiology evaluated pt and adjusted the metoprolol to 50mg po BID. His heart rate improved. Pt was advised to quit smoking and use nicotine patch. We encouraged him to follow up with PCP and cardiology in clinic. He was in NAD prior to discharge. Vital Signs/Physical Exam: Temp Pulse Resp BP Pulse Ox 98.7 F 80 16 128/93 H 99 01/14/24 12:00 01/14/24 12:00 01/14/24 12:00 01/14/24 12:00 01/14/24 12:00 Laboratory Data at Discharge: WBC 4.20 thou/uL (4.3-10.9) L 01/14/24 02:11 Hgb 13.7 g/dL (13.6-17.9) 01/14/24 02:11 Hct 40.2 % (39.6-49.0) 01/14/24 02:11 Plt Count 236 thou/uL (152-406) 01/14/24 02:11 Sodium 139 mEq/L (136-145) 01/14/24 02:11 Potassium 3.6 mEq/L (3.5-5.1) 01/14/24 02:11 BUN 9 mg/dL (7-18) 01/14/24 02:11 Creatinine 0.84 mg/dL (0.70-1.30) 01/14/24 02:11 Glucose 82 mg/dL (74-106) 01/14/24 02:11 Magnesium 2.3 mg/dL (1.6-2.4) 01/13/24 07:20 Total Bilirubin 0.4 mg/dL (0.2-1.0) 01/12/24 16:30 AST 21 U/L (15-37) 01/12/24 16:30 ALT 24 U/L (16-61) 01/12/24 16:30 Alkaline Phosphatase 87 U/L (45-117) 01/12/24 16:30 Home Medications: Folic Acid 1 mg PO DAILY 01/12/24 Quetiapine Fumarate [Seroquel] 300 mg PO BEDTIME 01/12/24 Vitamin B Complex [Vitamin B Complex*] 100 mcg PO DAILY 01/12/24 Aspirin [Aspirin EC 81 MG] 81 mg PO DAILY 90 Days #90 tab 01/14/24 Metoprolol Tartrate [Lopressor*] 50 mg PO BID 6AM 6PM 30 Days #60 tab 01/14/24 Nicotine [Nicoderm*] 14 mg TD DAILY 42 Days #42 patch 01/14/24 New Medications: Aspirin [Aspirin EC 81 MG] 81 mg PO DAILY 90 Days #90 tab Metoprolol Tartrate [Lopressor*] 50 mg PO BID 6AM 6PM 30 Days #60 tab Nicotine [Nicoderm*] 14 mg TD DAILY 42 Days #42 patch Physician Discharge Instructions: Continue ad cheikh activity. Take home metoprolol 50mg po BID and aspirin 81 mg po daily. Stop smoking. use nicotine patch daily. Follo wup with PCP and Dr. Small within 2 weeks Diet: AHA Activity: Ad cheikh Followup: ERIK VALENCIA [Primary Care Provider] - Deandre Small MD [ACTIVE - CAN ADMIT] -
[2024-01-14 12:56] VITALS: BP 128/93; TEMP 98.7
--- NOTE | 2024-01-14 14:44 | EKG ---
Test Date: 2024-01-12 Test Time: 16:32:20 Habilitation Assistant: ALP MEASUREMENT RESULTS: Intervals: Rate: 107 DE: QRSD: 100 QT: 290 QTc: 387 [place]: P: DE: QRS: 89 T: 76 INTERPRETIVE STATEMENTS: Atrial fibrillation with rapid ventricular response Moderate voltage criteria for LVH, may be normal variant Abnormal ECG No previous ECG available for comparison Electronically Signed On 01-14-24 14:41:37 FIN[employer]CIAL AUDIT[employer] by Deandre Small
== END 2024-01-14 14:58 | DRG 310 ==
LOC: ER 16:19 → ERHOLD 21:03 → 2ND 21:27
PROVIDERS: ADMIT Internal Medicine Nephrology; ATTEND Hospitalist
DX: I48.0 Paroxysmal atrial fibrillation (principal); I10 Essential (primary) hypertension; F39 Unspecified mood [affective] disorder; F17.200 Nicotine dependence, unspecified, uncomplicated; Z79.82 Long term (current) use of aspirin; Z79.899 Other long term (current) drug therapy
CPT/HCPCS: 36415; 71045; 80048; 80076; 80307; 83735; 84443; 84484; 85025; 85379; 93005; 93306; 96361; 96374; 99285; J7030